=== PATIENT | female | born 1985 | race African-American/Black ===

== ENCOUNTER 2021-05-19 18:34 | Emergency (ER) | payer MEDICAID, SELFPAY ==
[2021-05-19 18:35] VITALS: BP 165/105; PULSE 92; RESP 16; TEMP 36.2; O2SAT 97; BMI 22.3
--- NOTE | 2021-05-19 18:57 | ED.RN ---
PATIENT NOW STATES SHE IS NOT SURE IF SHE WOULD TRY ANYTHING TO END HER LIFE BUT DOES NOT WANT TO BE HOME ALONE SHE DOES NOT FEEL SAFE BUT HAS THOUGHT ABOUT LAYING ON TRAIN TRACKS.
[2021-05-19 19:13] LABS: Absolute Lymphocyte Count 1.67 X10^3/uL (0.83-4.51); Absolute Neutrophil Count 4.6 X10^3/uL (2.0-7.7); Basophil# 0.05 X10^3/uL; Basophil% 0.7 % (0-1); Eosinophil# 0.22 X10^3/uL; Eosinophils% 3.1 % (0-5); Hematocrit 38.2 % (40-54); Hemoglobin 13.5 g/dL (13.0-16.5); Lymphocyte # 1.67 X10^3/ul (0.83-4.51); Lymphocyte % 23.6 % (19-41); Mean Corp Hgb Conc 35.3 g/dL (32-36); Mean Corpuscular Hgb 31.7 pg (27.0-32.0); Mean Corpuscular Volume 89.7 fL (80-94); Mean Platelet Vol. 9.2 fl (6.2-12.0); Monocyte# 0.51 X10^3/uL; Monocyte% 7.2 % (0-10); NRBC Flagged by Analyzer 0 % (0-5); Neutrophil # 4.61 X10^3/uL (2.7-7.7); Neutrophil % 65.1 % (47-70); Platelet Count 497 K/mm3 (150-450); RBC Distribution Width CV 11.2 % (11.6-14.6); RBC Distribution Width SD 36.7 fl (35.1-43.9); Red Blood Count 4.26 M/mm3 (4.6-6.2); White Blood Count 7.1 K/mm3 (4.4-11.0)
--- NOTE | 2021-05-19 19:22 | EDS_ITS ---
HPI History of Present Illness Chief Complaint: Suicidal Narrative Narrative: Patient presents with depression and suicidal ideations, initially she tells me that because she has no place to live however when I asked further it is because she does not feel safe in the empty house that is available to her. She tells me she is chronically depressed but worse recently, now she either wants to overdose on her medications or lay in front of a train track and get run over her. PFSH PFS Home Medications bupropion HCl 75 mg PO DAILY 05/19/21 [History Last Taken Unknown] fluoxetine 40 mg PO DAILY 05/19/21 [History Last Taken Unknown] melatonin 5 mg QHS 05/19/21 [History Last Taken Unknown] multivitamin 1 cap DAILY 05/19/21 [History Last Taken Unknown] olanzapine 5 mg PO DAILY 05/19/21 [History Last Taken Unknown] omega-3 fatty acids [[place] 3 Fish Oil] 1 cap PO DAILY 05/19/21 [History Last Taken Unknown] Allergy/AdvReac Type Severity Reaction Status Date / Time diphenhydramine Allergy Other Verified 05/19/21 18:34 [From Benadryl] Social History Smoking Status: Never smoker ROS ROS ED ROS Narrative Past medical history: Reviewed, asthma otherwise bipolar and depression and anxiety. Medications: Reviewed Social history: As in HPI Review of systems: All systems negative except as indicated. She basically has no somatic complaints General: No fever Eyes: No visual changes ENT: No upper airway congestion, normal voice Neck: No neck pain Cardiovascular: No chest pain Respiratory: No shortness of breath or cough Gastrointestinal: No abdominal pain, nausea vomiting or diarrhea Genitourinary: No dysuria Musculoskeletal: Denies myalgias no difficulty with ambulation Skin: No rash Neurological: No memory loss, confusion or any focal weakness Psych: As in HPI Hematologic: No easy bleeding or easy bruising EXAM Physical Exam Narrative Exam Narrative: Physical exam General: Well nourished, Well developed, No Acute Distress Head: Normocephalic, Atraumatic Eyes: Conjunctiva not pale ENT: Moist mucous membranes Neck: Supple, Nontender, No lymphadenopathy Cardiovascular: Regular rate, Regular rhythm Respiratory: No distress, CTA bilaterally Abdomen: Soft, Nontender, Nondistended Back: Nontender, Normal Inspection. Negative for: CVA tenderness Extremities: Nontender, No edema Skin: Normal color, No rash Neurological: Alert, Normal Strength, Normal Sensation Psychological: Patient has a depressed affect, she does not make much eye contact, otherwise she is not delusional, she has normal speech pattern and is no psychosis. Const Vital Signs: 05/19/21 18:35 Temperature 97.2 F L Temperature Source Temporal Pulse Rate 92 Respiratory Rate 16 Blood Pressure 165/105 H Blood Pressure Mean 125 Pulse Ox 97 Oxygen Delivery Method Room Air MDM MDM MDM Narrative Medical decision making narrative: Patient be medically cleared, she will need placement for suicidal ideations. Lab Data Labs: Laboratory Results - last 24 hr 05/19/21 05/19/21 18:50 19:00 WBC 7.1 RBC 4.26 L Hgb 13.5 Hct 38.2 L MCV 89.7 MCH 31.7 MCHC 35.3 RDW Std Deviation 36.7 RDW Coeff of Yvette 11.2 L Plt Count 497 H MPV 9.2 Immature Gran % (Auto) 0.300 Neut % (Auto) 65.1 Lymph % (Auto) 23.6 [place] % (Auto) 7.2 Eos % (Auto) 3.1 Baso % (Auto) 0.7 Absolute Neuts (auto) 4.6 Absolute Lymphs (auto) 1.67 Nucleated RBC % 0 Ur Drug Screen Comment Discharge Plan Triage Chief Complaint: Suicidal ED Provider: Sebastián Leggett Dx/Rx/DC Orders Clinical Impression: Depression, Suicide ideation Prescriptions: No Action olanzapine 5 mg Tablet 5 mg PO DAILY RF: 0 bupropion HCl 75 mg Tablet 75 mg PO DAILY RF: 0 multivitamin Capsule 1 cap DAILY RF: 0 fluoxetine 20 mg Capsule 40 mg PO DAILY RF: 0 [place] 3 Fish Oil Capsule 1 cap PO DAILY RF: 0 melatonin 5 mg Capsule 5 mg QHS RF: 0 Referrals: CORKY MAYO [Other] Disposition Disposition: Transfer to Another Type [facility]
[2021-05-19 19:28] LABS: Amphetamine Urine VISTA NEGATIVE (<1000 ng/mL); Barbiturate Urine VISTA NEGATIVE (< 200 ng/mL); Benzodiazepine Urine VISTA NEGATIVE (< 200 ng/mL); Cocaine Urine VISTA NEGATIVE (< 300 ng/mL); Ecstacy Urine VISTA POSITIVE (< 500 ng/mL); Methadone Urine VISTA NEGATIVE (< 300 ng/mL); PCP Urine VISTA NEGATIVE (< 25 ng/mL); THC Urine VISTA NEGATIVE (< 50 ng/mL); Vista UDS pH Range 6
[2021-05-19 19:28] LABS: Alcohol, Blood (Medical)-Serum < 3.0 mg/dL
[2021-05-19 19:29] LABS: Anion Gap 7 (5-15); BUN 5 mg/dL (7-18); BUN/Creat Ratio 5.7 RATIO (10-20); Calcium,Total 9.7 mg/dL (8.5-10.1); Chloride 106 mmol/L (98-107); Creatinine, Serum 0.88 mg/dL (0.55-1.02); EST Glomerular Filtration Rate 78 mL/min (>60); Est Glom Filt Rate - Afr Amer 95 mL/min (>60); Estimated Creatinine Clearance 78.52 ml/min; Glucose 104 mg/dL (74-106); Potassium 3.2 mmol/L (3.5-5.1); Sodium Level 139 mmol/L (136-145)
[2021-05-19 19:38] LABS: Internal QC Validated? YES +Cl - CLEAR BKGD; Pregnancy, Serum, hCG Quali. NEGATIVE Negative
[2021-05-19 19:51] VITALS: RESP 17
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
--- NOTE | 2021-05-19 20:09 | CM.ED ---
Social Work Telephone call to shanique Villafana. Unable to confirm if there are open beds. Clinical information faxed. [facility] usual process. Clinical information faxed. Will continue to follow. King CHACON, FIDEL
[2021-05-19] MEDS: Acetaminophen 500 MG Tablet 1000 MG PO (21:35)
[2021-05-19 21:36] VITALS: RESP 17
--- NOTE | 2021-05-19 21:37 | CM.ED ---
Social Work Telephone call to [facility], intake. Intake reports to have open beds. Clinical information faxed. Will continue to follow. King CHACON, FIDEL
--- NOTE | 2021-05-19 22:17 | CM.ED ---
Social Work Telephone call from Gwendolyn Villafana. Patient accepted by Dr. Martinez to the adult unit. Nurse to call report to [phone]. Telephone call to [facility], [facility]. Referral canceled. Telephone call to [facility], [facility]. Referral canceled. Medical team and patient updated. PLAN: Meghan Horner. King CHACON, FIDEL
[2021-05-19 22:25] VITALS: RESP 17
[2021-05-19 23:00] VITALS: BP 120/70; PULSE 72; RESP 17; TEMP 36.2; O2SAT 99
[2021-05-20 00:13] VITALS: RESP 16
[2021-05-20 02:00] VITALS: PULSE 72; RESP 14
== END 2021-05-20 02:56 | disposition other institution (70) ==
PROVIDERS: Emergency Provider Emergency Medicine; Visit Provider Emergency Medicine
DX: F32.A Depression, unspecified (principal); R45.851 Suicidal ideations; Z79.899 Other long term (current) drug therapy
CPT/HCPCS: 36415; 80048; 80307; 82077; 84703; 85025; 87426; 99285

== ENCOUNTER 2021-06-03 17:22 | Emergency (ER) | payer MEDICAID, SELFPAY ==
[2021-06-03 17:25] VITALS: BP 146/118; PULSE 72; RESP 17; TEMP 35.6; O2SAT 100; BMI 21.4
--- NOTE | 2021-06-03 18:22 | EX.ED.VIS.PS ---
HPI HPI - Psych History of Present Illness Chief Complaint: Suicidal Narrative Narrative: 35-year-old female with history of depression, suicidal ideation presenting after saying she wanted to . Patient is homeless and lives in a prison and she does not want to live there. She states she does not feel suicidal she is stated she does not want to live anymore. She has no active plan to hurt herself. No homicidal ideation. She is not hallucinating. Patient does states she was recently admitted about 2 weeks ago from [facility]. PFSH PFSH Allergy/AdvReac Type Severity Reaction Status Date / Time diphenhydramine Allergy Angioedema Verified 06/03/21 17:23 [From Benadryl] Social History Smoking Status: Never smoker ROS ROS ED Constitutional Constitutional ED: Denies fever(s) or sweats Eyes Eyes: Denies blurry vision or diplopia ENT ENT ED: Denies rhinorrhea or sore throat Cardiovascular Cardiovascular: Denies chest pain or palpitations Respiratory/Chest Respiratory/Chest: Denies cough or dyspnea Gastrointestinal Gastrointestinal: Denies abdominal pain, nausea or vomiting Genitourinary Genitourinary ED: Denies dysuria or hematuria Musculoskeletal Musculoskeletal: Denies arthralgias or myalgias Integumentary Denies abscess or rash Neurologic Neurologic: Denies headache(s) or weakness Psychiatric Psychiatric: Reports depression and suicidal thoughts; Denies suicidal ideation Endocrine Endocrinology: Denies polydipsia or polyuria EXAM Physical Exam Const Vital Signs: 06/03/21 17:25 06/03/21 20:02 Temperature 96.0 F L Temperature Source Temporal Pulse Rate 72 76 Respiratory Rate 17 17 Blood Pressure 146/118 H Blood Pressure Mean 127 Pulse Ox 100 Oxygen Delivery Method Room Air Positive well nourished General Appearance ED: NAD; Negative for pallor HEENT normocephalic and atraumatic Eyes PERRL and EOMs intact bilaterally Cardio Rate: regular rate Rhythm: regular rhythm Extremity normal to inspection Neuro oriented x3 and CN's II-XII intact bilaterally Sensorium / Orientation: alert Psych denies homicidal ideation and denies suicidal ideation Appearance: grossly normal Mood & Affect: depressed Skin General Skin Exam: Negative for jaundice or pallor Rashes: no rashes MDM MDM MDM Narrative Medical decision making narrative: After speaking with the pediatric social worker the patient was saying that she feels like she wants to . She is currently off her medications a. She does not have any follow-up. She is currently homeless. Social work felt it was best if she was to come inpatient due to her suicidal thoughts although she does not have an active plan just this month she was seen for wanting to and threatened to put her self on train tracks versus overdose with her medications. Blood work is obtained and her CBC and BMP are normal with exception of a potassium of 3.3 which was repleted orally. Serum negative. EtOH negative. Urine drug screen negative. Rapid Covid negative. Patient medically cleared. Patient was accepted by [facility] and will be transferred when transport becomes available. Impression: 1. Depression 2. Suicidal thoughts 3. Hypokalemia Lab Data Attestation: I reviewed the patient's lab results. Labs: Laboratory Results - last 24 hr 06/03/21 06/03/21 06/03/21 18:45 18:45 18:45 WBC 5.5 RBC 4.33 Hgb 13.4 Hct 39.7 MCV 91.7 MCH 30.9 MCHC 33.8 RDW Std Deviation 38.5 RDW Coeff of Yvette 11.4 L Plt Count 416 MPV 9.0 Immature Gran % (Auto) 0.400 Neut % (Auto) 69.4 Lymph % (Auto) 19.3 [place] % (Auto) 7.1 Eos % (Auto) 3.3 Baso % (Auto) 0.5 Absolute Neuts (auto) 3.8 Absolute Lymphs (auto) 1.06 Nucleated RBC % 0 Sodium 139 Potassium 3.3 L Chloride 107 Carbon Dioxide 26.0 Anion Gap 6 BUN 7 Creatinine 0.87 Estim Creat Clear Calc 79.42 Est GFR (MDRD) Af Amer 96 Est GFR (MDRD) Non-Af 79 BUN/Creatinine Ratio 8.0 L Glucose 91 Calcium 9.6 Serum , Qual Urine Opiates Screen Urine Methadone Screen Ur Barbiturates Screen Ur Phencyclidine Scrn Ur Amphetamines Screen MDMA (Ecstasy) Screen U Benzodiazepines Scrn Urine Cocaine Screen U Cannabinoids Screen Ur Drug Screen Comment Ethyl Alcohol < 3.0 06/03/21 06/03/21 18:45 19:00 WBC RBC Hgb Hct MCV MCH MCHC RDW Std Deviation RDW Coeff of Yvette Plt Count MPV Immature Gran % (Auto) Neut % (Auto) Lymph % (Auto) [place] % (Auto) Eos % (Auto) Baso % (Auto) Absolute Neuts (auto) Absolute Lymphs (auto) Nucleated RBC % Sodium Potassium Chloride Carbon Dioxide Anion Gap BUN Creatinine Estim Creat Clear Calc Est GFR (MDRD) Af Amer Est GFR (MDRD) Non-Af BUN/Creatinine Ratio Glucose Calcium Serum , Qual NEGATIVE Urine Opiates Screen NEGATIVE Urine Methadone Screen NEGATIVE Ur Barbiturates Screen NEGATIVE Ur Phencyclidine Scrn NEGATIVE Ur Amphetamines Screen NEGATIVE MDMA (Ecstasy) Screen NEGATIVE U Benzodiazepines Scrn NEGATIVE Urine Cocaine Screen NEGATIVE U Cannabinoids Screen NEGATIVE Ur Drug Screen Comment Ethyl Alcohol Discharge Plan Triage Chief Complaint: Suicidal Other Complaint: Mental Health ED Provider: Chandra Nicole
[2021-06-03 19:03] LABS: Absolute Lymphocyte Count 1.06 X10^3/uL (0.83-4.51); Absolute Neutrophil Count 3.8 X10^3/uL (2.0-7.7); Basophil# 0.03 X10^3/uL; Basophil% 0.5 % (0-1); Eosinophil# 0.18 X10^3/uL; Eosinophils% 3.3 % (0-5); Hematocrit 39.7 % (37-47); Hemoglobin 13.4 g/dL (12.0-15.0); Lymphocyte # 1.06 X10^3/ul (0.83-4.51); Lymphocyte % 19.3 % (19-41); Mean Corp Hgb Conc 33.8 g/dL (32-36); Mean Corpuscular Hgb 30.9 pg (27.0-32.0); Mean Corpuscular Volume 91.7 fL (81-99); Monocyte# 0.39 X10^3/uL; Monocyte% 7.1 % (0-10); NRBC Flagged by Analyzer 0 % (0-5); Neutrophil % 69.4 % (47-70); Platelet Count 416 K/mm3 (150-450); RBC Distribution Width CV 11.4 % (11.6-14.6); RBC Distribution Width SD 38.5 fl (35.1-43.9); Red Blood Count 4.33 M/mm3 (4.2-5.4); White Blood Count 5.5 K/mm3 (4.4-11.0)
[2021-06-03 19:18] LABS: Anion Gap 6 (5-15); BUN 7 mg/dL (7-18); Calcium,Total 9.6 mg/dL (8.5-10.1); Chloride 107 mmol/L (98-107); Creatinine, Serum 0.87 mg/dL (0.55-1.02); EST Glomerular Filtration Rate 79 mL/min (>60); Est Glom Filt Rate - Afr Amer 96 mL/min (>60); Estimated Creatinine Clearance 79.42 ml/min; Glucose 91 mg/dL (74-106); Potassium 3.3 mmol/L (3.5-5.1); Sodium Level 139 mmol/L (136-145)
[2021-06-03 19:26] LABS: Internal QC Validated? YES +Cl - CLEAR BKGD; Pregnancy, Serum, hCG Quali. NEGATIVE Negative
[2021-06-03 19:27] LABS: Alcohol, Blood (Medical)-Serum < 3.0 mg/dL
[2021-06-03 19:31] LABS: Amphetamine Urine VISTA NEGATIVE (<1000 ng/mL); Barbiturate Urine VISTA NEGATIVE (< 200 ng/mL); Benzodiazepine Urine VISTA NEGATIVE (< 200 ng/mL); Cocaine Urine VISTA NEGATIVE (< 300 ng/mL); Ecstacy Urine VISTA NEGATIVE (< 500 ng/mL); Methadone Urine VISTA NEGATIVE (< 300 ng/mL); PCP Urine VISTA NEGATIVE (< 25 ng/mL); THC Urine VISTA NEGATIVE (< 50 ng/mL); Vista UDS pH Range 7
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
[2021-06-03] MEDS: Potassium Chloride Oral Tablet 20 MEQ 40 MEQ PO (20:00)
[2021-06-03 20:02] VITALS: PULSE 76; RESP 17
--- NOTE | 2021-06-03 20:41 | NURSING ---
ACCEPTED AT [facility]
--- NOTE | 2021-06-03 20:59 | CM.ED ---
NICHOLAS Note: NICHOLAS called [facility]. They advised to fax referral. NICHOLAS faxed referral. NICHOLAS called [facility]. They have not made a determination yet regarding patient. NICHOLAS called [facility] and advised that SW is faxing referral. NICHOLAS faxed referral to [facility] NICHOLAS received call from Sarah at [facility]. Patient accepted to the Adult Behaviora Unit. RN to RN is [phone]. Accepting MD is Evgeny. Sarah requested pink slip with MEP name be faxed to [facility]. NICHOLAS faxed updated pink slip to [facility]. NICHOLAS updated RN and embossing clerk and MD that patient accepted at [facility]. admin secretary Kathy will schedule transport. NICHOLAS spoke to patient and advised she is going to [facility]. NICHOLAS also provided her with resource list from [employer] and phone number for homeless navigator. Plan: [facility] Kristel NEVAREZ
[2021-06-03 21:04] VITALS: BP 146/98; PULSE 77; RESP 16; TEMP 36.5; O2SAT 99
--- NOTE | 2021-06-03 21:11 | NURSING ---
CALLED [facility], ETA IS 20 TO 30 MIN
== END 2021-06-03 21:59 ==
PROVIDERS: Emergency Provider Student in an Organized Health Care Education/Training Program; Visit Provider Student in an Organized Health Care Education/Training Program
DX: F32.A Depression, unspecified (principal); R45.851 Suicidal ideations; E87.6 Hypokalemia
CPT/HCPCS: 80048; 80307; 82077; 84703; 85025; 87811; 99282

== ENCOUNTER 2021-06-20 08:39 | Emergency (ER) | payer MEDICAID, SELFPAY ==
[2021-06-20 08:40] VITALS: BP 126/88; PULSE 77; RESP 16; TEMP 36.4; O2SAT 100; BMI 21.4
--- NOTE | 2021-06-20 08:49 | EKG12_ITS ---
Test Reason : MENTAL HEALTH Blood Pressure : / mmHG Vent. Rate : 067 BPM Atrial Rate : 067 BPM P-R Int : 158 ms QRS Dur : 074 ms QT Int : 418 ms P-R-T Axes : 082 -09 052 degrees QTc Int : 441 ms Normal sinus rhythm with sinus arrhythmia Normal ECG Confirmed by ARVIN LIN, GENNY ([id number]), publications editor ARUNA LINDQUIST ([id number]) on 06/22/2021 11:32:03 AM Referred By: YORDY Confirmed By:GENNY SHERIDAN MD
--- NOTE | 2021-06-20 08:54 | NURSING ---
NO OLD EKGS
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
[2021-06-20 09:16] LABS: Absolute Lymphocyte Count 1.63 X10^3/uL (0.83-4.51); Absolute Neutrophil Count 3.9 X10^3/uL (2.0-7.7); Basophil# 0.05 X10^3/uL; Basophil% 0.8 % (0-1); Eosinophil# 0.21 X10^3/uL; Eosinophils% 3.4 % (0-5); Hematocrit 35.9 % (37-47); Hemoglobin 12.7 g/dL (12.0-15.0); Lymphocyte # 1.63 X10^3/ul (0.83-4.51); Lymphocyte % 26.2 % (19-41); Mean Corp Hgb Conc 35.4 g/dL (32-36); Mean Corpuscular Hgb 30.7 pg (27.0-32.0); Mean Corpuscular Volume 86.7 fL (81-99); Mean Platelet Vol. 9.3 fl (6.2-12.0); Monocyte# 0.38 X10^3/uL; Monocyte% 6.1 % (0-10); NRBC Flagged by Analyzer 0 % (0-5); Neutrophil # 3.91 X10^3/uL (2.7-7.7); Neutrophil % 62.9 % (47-70); Platelet Count 385 K/mm3 (150-450); RBC Distribution Width CV 11.2 % (11.6-14.6); RBC Distribution Width SD 35.4 fl (35.1-43.9); Red Blood Count 4.14 M/mm3 (4.2-5.4); White Blood Count 6.2 K/mm3 (4.4-11.0)
[2021-06-20 09:40] LABS: ALB/GLOB Ratio 1.1 RATIO (0.9-2.4); AST(SGOT) 14 U/L (15-37); Alanine Aminotransfer ALT/SGPT 13 U/L (13-56); Albumin, Serum 4.1 g/dL (3.2-5.0); Alkaline Phosphatase 80 U/L (45-117); Anion Gap 8 (5-15); BUN 10 mg/dL (7-18); BUN/Creat Ratio 11.6 RATIO (10-20); Chloride 105 mmol/L (98-107); Creatinine, Serum 0.86 mg/dL (0.55-1.02); EST Glomerular Filtration Rate 80 mL/min (>60); Est Glom Filt Rate - Afr Amer 97 mL/min (>60); Estimated Creatinine Clearance 80.35 ml/min; Globulin 3.9 g/dL (2.2-4.2); Glucose 78 mg/dL (74-106); Potassium 3.6 mmol/L (3.5-5.1); Sodium Level 136 mmol/L (136-145)
[2021-06-20 09:41] LABS: Internal QC Validated? YES +Cl - CLEAR BKGD; Pregnancy, Serum, hCG Quali. NEGATIVE Negative
[2021-06-20 09:43] LABS: Alcohol, Blood (Medical)-Serum < 3.0 mg/dL
[2021-06-20 10:13] LABS: Amphetamine Urine VISTA NEGATIVE (<1000 ng/mL); Barbiturate Urine VISTA NEGATIVE (< 200 ng/mL); Benzodiazepine Urine VISTA NEGATIVE (< 200 ng/mL); Cocaine Urine VISTA NEGATIVE (< 300 ng/mL); Ecstacy Urine VISTA NEGATIVE (< 500 ng/mL); Methadone Urine VISTA NEGATIVE (< 300 ng/mL); PCP Urine VISTA NEGATIVE (< 25 ng/mL); THC Urine VISTA NEGATIVE (< 50 ng/mL); Vista UDS pH Range 5
[2021-06-20 10:21] VITALS: RESP 16
--- NOTE | 2021-06-20 10:26 | NURSING ---
FAXED CHART TO CRISIS
[2021-06-20 11:07] VITALS: RESP 16
--- NOTE | 2021-06-20 11:24 | NURSING ---
1118 RAVINDER, CRISIS, TALKING TO PATIENT
[2021-06-20 12:14] VITALS: PULSE 65; RESP 16; O2SAT 98
--- NOTE | 2021-06-20 12:15 | ED.RN ---
facility staff from the senior care will make sure that pt gets to her counseling appt.
== END 2021-06-20 12:15 | disposition home or self-care (01) ==
PROVIDERS: Emergency Provider Emergency Medicine; Visit Provider Emergency Medicine
DX: F31.9 Bipolar disorder, unspecified (principal); R45.851 Suicidal ideations; Z79.899 Other long term (current) drug therapy
CPT/HCPCS: 80053; 80307; 82077; 84703; 85025; 93005; 99284

== ENCOUNTER 2023-11-26 22:36 | Emergency (ER) | payer SELFPAY ==
[2023-11-26 22:38] VITALS: BP 158/100; PULSE 89; RESP 25; TEMP 35.5; O2SAT 100
[2023-11-26 22:40] VITALS: O2SAT 100
--- NOTE | 2023-11-26 23:12 | RAD_ITS ---
INDICATION: SOB EXAMINATION/TECHNIQUE: X-RAY - XR Chest 2 Views COMPARISON: No relevant prior comparison study available FINDINGS: LINES/DEVICES: None. LUNGS: No consolidation. No pneumothorax. MEDIASTINUM: Unremarkable. CARDIAC SILHOUETTE: Not enlarged. BONES AND SOFT TISSUES: No acute abnormalities. RAD/Chest PA and Lateral IMPRESSION: No evidence of active intrathoracic disease. Electronically Signed: Lara Webb MD at 0:47 EDT ,
--- NOTE | 2023-11-26 23:13 | EDS_ITS ---
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 She states she is feeling lightheaded. She presents by EMS. She denies any chest discomfort or illness prior to this. [facility] Medical History PTSD (post-traumatic stress disorder) Bipolar 1 disorder Anxiety Depression Home Medications ?Medication ?Instructions ?Recorded ?Last Taken ?Type bupropion HCl 75 mg tablet 75 mg PO DAILY 05/19/21 Unknown History fluoxetine 20 mg capsule 40 mg PO DAILY 05/19/21 Unknown History melatonin 5 mg capsule 5 mg QHS 05/19/21 Unknown History multivitamin 1 cap DAILY 05/19/21 Unknown History olanzapine 5 mg tablet 5 mg PO DAILY 05/19/21 Unknown History omega-3 fatty acids 1 cap PO DAILY 05/19/21 Unknown History bupropion HCl 450 mg 24 hr tablet, 450 mg PO DAILY 06/20/21 Unknown History extended release famotidine 20 mg tablet 20 mg PO DAILY 06/20/21 Unknown History fluoxetine 40 mg capsule 80 mg PO DAILY 06/20/21 Unknown History melatonin 3 mg tablet 6 mg PO QHS 06/20/21 Unknown History mirtazapine 30 mg tablet 30 mg PO QHS 06/20/21 Unknown History olanzapine 20 mg tablet 20 mg PO QHS 06/20/21 Unknown History albuterol sulfate 90 mcg/actuation 1 - 2 puff inhalation Q4H PRN PRN 11/27/23 Unknown Rx aerosol inhaler (Ventolin HFA) Wheezing ##1 Allergy/AdvReac Type Severity Reaction Status Date / Time diphenhydramine (From Allergy Angioedema Verified 11/26/23 22:38 Benadryl) Surgical History H/O: hysterectomy Social History Smoking Status: Never smoker ROS ROS ED Constitutional Constitutional ED: Denies chills or fever(s) Eyes Eyes: Denies change in vision or diplopia ENT ENT ED: Denies rhinorrhea or sore throat Cardiovascular Cardiovascular: Reports lightheadedness; Denies chest pain or palpitations Respiratory/Chest Respiratory/Chest: Reports dyspnea; Denies cough Gastrointestinal Gastrointestinal: Denies abdominal pain, diarrhea, nausea or vomiting Genitourinary Genitourinary ED: Denies dysuria or hematuria Musculoskeletal Musculoskeletal: Denies back pain or neck pain Integumentary Denies abscess or rash Neurologic Neurologic: Denies headache(s), paresthesias or weakness Psychiatric Psychiatric: Reports anxiety; Denies suicidal thoughts EXAM Physical Exam Const Vital Signs: 11/26/23 22:38 11/26/23 23:18 Temperature 96 F L Temperature Source Temporal Pulse Rate 89 69 Respiratory Rate 25 H 20 H Blood Pressure 158/100 H Blood Pressure Mean 119 Pulse Ox 100 Oxygen Delivery Method Room Air Positive well nourished and well developed General Appearance ED: well developed and NAD HEENT Reports moist mucous membranes normocephalic and atraumatic Eyes PERRL and EOMs intact bilaterally Neck full ROM and supple Resp normal respiratory effort and clear to auscultation bilaterally Resp Narrative: Tachypneic. Equal breath sounds bilaterally. Trachea midline. Clear. Cardio regular rate, regular rhythm and no murmurs GI non-tender and non-distended Auscultation: normoactive bowel sounds Palpation: soft Back/Spine no CVA tenderness General Back: other FROM Extremity normal to inspection General Extremety ED: Negative for edema, pulses abnormal or tenderness General Extremity: Negative for edema or pulses abnormal Neuro oriented x3, CN's II-XII intact bilaterally and no sensory deficits noted Sensorium / Orientation: awake and alert Motor Exam: strength 5/5 throughout Psych Mood & Affect: anxious Thought Process: normal thought process Skin no rashes or lesions noted and no wounds MDM MDM MDM Narrative Medical decision making narrative: Patient is tachypneic with fairly clear lungs no tachycardia, 100% pulse oximetry on room air, she appears very anxious. I advised her to try to calm her breathing down and we gave her breathing treatment, this really helped. I obtained a two-view chest x-ray on my interpretation it is normal. I reexamination she is doing much better, breathing comfortably, and not tachypneic and feeling much better. Prescribed an albuterol rescue inhaler I do not think she needs steroids for this. She is comfortable with that plan. Discharge Plan Triage Chief Complaint: Shortness of Breath ED Provider: Rodo Garcia Dx/Rx/DC Orders Clinical Impression: Asthma exacerbation Instructions: ED Asthma, Acute (Adult) Prescriptions: New albuterol sulfate [Ventolin HFA] 90 mcg/actuation HFA aerosol inhaler 1 - 2 puff inhalation Q4H PRN PRN (Reason: Wheezing) Qty: 1 0RF No Action olanzapine 5 mg Tablet 5 mg PO DAILY bupropion HCl 75 mg Tablet 75 mg PO DAILY multivitamin Capsule 1 cap DAILY fluoxetine 20 mg Capsule 40 mg PO DAILY [place] 3 Fish Oil Capsule 1 cap PO DAILY melatonin 5 mg Capsule 5 mg QHS fluoxetine 40 mg Capsule 80 mg PO DAILY melatonin 3 mg Tablet 6 mg PO QHS famotidine 20 mg Tablet 20 mg PO DAILY mirtazapine 30 mg Tablet 30 mg PO QHS olanzapine 20 mg Tablet 20 mg PO QHS bupropion HCl 450 mg Tablet Extended Release 24 Hr 450 mg PO DAILY Primary Care Provider: Manolo Brandon Referrals: Manolo Brandon [Other] Print Language: Nauruan
[2023-11-26] MEDS: Albuterol 2.5 MG/3 ML VIAL.NEB. INHALATION (23:17)
[2023-11-26 23:18] VITALS: PULSE 69; RESP 20
[2023-11-27 00:36] VITALS: BP 114/82; PULSE 85; RESP 16; TEMP 36.8; O2SAT 99
== END 2023-11-27 00:37 | disposition home or self-care (01) ==
PROVIDERS: Emergency Provider Emergency Medicine; Visit Provider Emergency Medicine
DX: J45.901 Unspecified asthma with (acute) exacerbation (principal)
CPT/HCPCS: 71046; 94640; 99282

== ENCOUNTER 2024-01-07 17:51 | Emergency (ER) | payer MEDICAID, SELFPAY ==
[2024-01-07 17:53] VITALS: BP 151/94; PULSE 89; RESP 16; TEMP 36.6; O2SAT 100; BMI 19.5
--- NOTE | 2024-01-07 19:00 | RAD_ITS ---
EXAM: XR RIGHT HIP WITH AP PELVIS , 3 VIEWS CLINICAL INDICATION: INJURY TECHNIQUE: Two views of the right hip with AP pelvis . COMPARISON: No relevant prior studies available. FINDINGS: BONES/JOINTS: Unremarkable. No displaced fracture. No destructive or sclerotic lesions. Note that overlapping bowel shadows may however obscure fine detail. Sacroiliac joint is unremarkable. No widening of the pubic symphysis. The articular structures are unremarkable. SOFT TISSUES: Unremarkable. No soft tissue swelling or gas. RAD/HIP, UNI W/ Pelvis 2-3 Views IMPRESSION: No evidence of displaced pelvic or hip fracture. No joint effusion. Electronically Signed: Karen Johansen MD at 20:37 EDT ,
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
[2024-01-07 23:15] VITALS: BP 105/82; PULSE 66; RESP 16; TEMP 36.9; O2SAT 96
[2024-01-07] MEDS: predniSONE 20 MG Tablet 40 MG PO (23:17)
== END 2024-01-07 23:21 | disposition home or self-care (01) ==
PROVIDERS: Emergency Provider Emergency Medicine; Visit Provider Emergency Medicine
DX: M25.551 Pain in right hip (principal); F31.9 Bipolar disorder, unspecified; F41.9 Anxiety disorder, unspecified
CPT/HCPCS: 73502; 99283

== ENCOUNTER 2024-04-04 16:23 | Emergency (ER) | payer MEDICAID, SELFPAY ==
[2024-04-04 16:25] VITALS: BP 135/101; PULSE 95; RESP 18; TEMP 36.1; O2SAT 100
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
[2024-04-04 17:19] VITALS: BMI 19.5
[2024-04-04 17:33] LABS: Absolute Neutrophil Count 3.7 X10^3/uL (2.0-7.7); Basophil# 0.05 X10^3/uL; Basophil% 0.8 % (0-1); Eosinophil# 0.23 X10^3/uL; Eosinophils% 3.8 % (0-5); Hematocrit 38.7 % (37-47); Hemoglobin 13.3 g/dL (12.0-15.0); Lymphocyte % 26.7 % (19-41); Mean Corp Hgb Conc 34.4 g/dL (32-36); Mean Corpuscular Hgb 31.5 pg (27.0-32.0); Mean Corpuscular Volume 91.7 fL (81-99); Mean Platelet Vol. 9.2 fl (6.2-12.0); Monocyte# 0.35 X10^3/uL; Monocyte% 5.8 % (0-10); NRBC Flagged by Analyzer 0 % (0-5); Neutrophil # 3.74 X10^3/uL (2.7-7.7); Neutrophil % 62.4 % (47-70); Platelet Count 359 K/mm3 (150-450); RBC Distribution Width CV 11.5 % (11.6-14.6); RBC Distribution Width SD 38.9 fl (35.1-43.9); Red Blood Count 4.22 M/mm3 (4.2-5.4)
[2024-04-04 17:51] LABS: Internal QC Validated? YES +Cl - CLEAR BKGD; Pregnancy, Serum, hCG Quali. NEGATIVE Negative
[2024-04-04 17:57] LABS: Amphetamine Urine NEGATIVE (<1000 ng/mL); Barbiturate Urine VISTA NEGATIVE (< 200 ng/mL); Benzodiazepine Urine VISTA NEGATIVE (< 200 ng/mL); Cocaine Urine VISTA NEGATIVE (< 300 ng/mL); Ecstacy Urine VISTA NEGATIVE (< 500 ng/mL); Methadone Urine VISTA NEGATIVE (< 300 ng/mL); PCP Urine VISTA NEGATIVE (< 25 ng/mL); THC Urine VISTA NEGATIVE (< 50 ng/mL); Vista UDS pH Range 7
[2024-04-04 18:12] VITALS: BP 142/97; PULSE 80; O2SAT 100
[2024-04-04 18:14] LABS: Anion Gap 4 (5-15); BUN 9 mg/dL (7-18); BUN/Creat Ratio 9.1 RATIO (10-20); Calcium,Total 9.4 mg/dL (8.5-10.1); Chloride 106 mmol/L (98-107); Creatinine, Serum 0.99 mg/dL (0.55-1.02); EST Glomerular Filtration Rate 68 mL/min (>60); Est Glom Filt Rate - Afr Amer 82 mL/min (>60); Estimated Creatinine Clearance 64.24 ml/min; Glucose 99 mg/dL (74-106); Potassium 3.6 mmol/L (3.5-5.1); Sodium Level 136 mmol/L (136-145)
--- NOTE | 2024-04-04 18:38 | ED.RN ---
PT REFUSES TO TAKE MOTRIN. STATES I AM UNABLE TO TAKE NSAIDS. WHEN ASKED WHY PT DID NOT TELL STAFF THIS EARLIER OR HAVE IT LISTED. PT STATES LISTEN, I AM IN SEVERE CHRONIC PAIN
--- NOTE | 2024-04-04 19:05 | ED.RN ---
[facility]IS CALLED AND CHART FAXED. SW WILL BE IN.
[2024-04-04] MEDS: Ketorolac 15 MG/ML Vial IM (19:46)
[2024-04-05] MEDS: Ketorolac 15 MG/ML Vial IM ×3 (02:15→22:19)
[2024-04-05 02:20] VITALS: BP 130/65; PULSE 69; RESP 17; O2SAT 98
--- NOTE | 2024-04-05 04:39 | ED.RN ---
DAYLIN MARTELL CALLED, PT REFERRED TO [facility] AND [facility].
[2024-04-05] MEDS: LORazepam 0.5 MG Tablet PO (08:08)
--- NOTE | 2024-04-05 09:29 | ED.RN ---
CRISIS CALLED AT 0930 [facility] AND [facility] DECLINED DUE TO LACK OF BEDS AND NO DCS TODAY. SHE IS UNDER REVIEW AT [facility] AND [facility].
[2024-04-05 10:00] VITALS: BP 131/107; PULSE 71; RESP 18; O2SAT 98
--- NOTE | 2024-04-05 10:56 | ED.RN ---
DECLINED AT [facility] UNDER REVIEW AT [facility] ROBLERO AND WAITING TO HEAR FROM GENERAL STILL
--- NOTE | 2024-04-05 11:16 | EKG12_ITS ---
Test Reason : MEDICAL CLEARANCE Blood Pressure : */* mmHG Vent. Rate : 80 BPM Atrial Rate : 80 BPM P-R Int : 168 ms QRS Dur : 74 ms QT Int : 376 ms P-R-T Axes : 81 -27 44 degrees QTcB Int : 433 ms Normal sinus rhythm Normal ECG Confirmed by KIMBERLY LIN, JOSE ([id number]), photo editor KYLER VALLECILLO ([id number]) on 04/06/2024 10:58:15 A M Referred By: Confirmed By: JOSE HARRIS MD
--- NOTE | 2024-04-05 11:38 | ED.RN ---
DECLINED AT [facility] ALSO. CRISIS WILL START LOOKING INTO [facility].
--- NOTE | 2024-04-05 14:36 | ED.RN ---
OF 1429 CRISIS CALLED BACK, [facility] WILL NOT HAVE ANY FEMALE BEDS OR DCS TODAY OR TOMORROW. MAYI FROM CRISIS IS STILL WORKING ON PLACEMENT AT [facility] AND [facility]. SHE IS ALSO REACHING OUT TO THE PLACES THAT ORIGINALLY DECLINED DUE TO LACK OF BEDS TO SEE IF THEY WILL HAVE A BED SOONER THAN SATURDAY.
--- NOTE | 2024-04-05 15:13 | ED.RN ---
SILVIA FROM CRISES TO COME SEE PT FACE TO FACE
--- NOTE | 2024-04-05 15:15 | ED.RN ---
PT UNDER REVIEW AT [facility] RUBI GONZALES
[2024-04-05] MEDS: Acetaminophen 325 MG Tablet 650 MG PO (15:33)
--- NOTE | 2024-04-05 17:16 | ED.RN ---
Brock from crisis re-evaluated pt, still will be placing pt. continue to refer and find a facility.
[2024-04-05 17:36] VITALS: PULSE 81; RESP 17; TEMP 36.7; O2SAT 97
[2024-04-06 02:00] VITALS: BP 128/80; PULSE 69; RESP 17; O2SAT 98
[2024-04-06] MEDS: Ketorolac 10 MG Tablet PO (06:15)
--- NOTE | 2024-04-06 08:24 | CM.ED ---
Social work This SW called Massiel at [facility] ([phone]) to check on patient's status on inpatient placement. Massiel stated there is no update as [facility] is still waiting on [place] to call back. Massiel stated intent to call back to other places that have declined patient due to having no beds over the weekend. [facility] to return call to this SW when answer is known. SW to follow as needed. Toña Fraser, SPOUTING INSTALLER, MOSAICIST
--- NOTE | 2024-04-06 08:56 | ED.RN ---
ACCEPTED AT [facility] AT 0850 RIDE COMING AT 1033
[2024-04-06 10:23] VITALS: BP 132/76; PULSE 78; RESP 18; TEMP 36.6; O2SAT 98
[2024-04-06 10:51] VITALS: BP 132/78; PULSE 64; RESP 18; TEMP 37.1; O2SAT 99
--- NOTE | 2024-04-06 11:43 | CM.ED ---
Social work This SW received a voicemail from Elena at [facility] and returned phone call at 1135 (ph: [phone]). Elena stated patient may not be able to go to [place] today due to it being a holiday and Elena apologized. This SW advised Elena that [place] had communicated directly with [facility] ED java front end web developer at 0850 stating that patient was accepted with transport scheduled for 1030. Patient left the [facility] ED around 1100. This SW apologized to [facility], stating the assumption that [place] had communicated with [facility] as well. Elena accepted apology and stated being glad that patient was able to go today after all. No other needs identified for patient at this time. Toña Fraser, SAND CARRIER, PEARL STRINGER
== END 2024-04-06 10:53 ==
PROVIDERS: Nurse Practitioner; Emergency Provider Surgery; Visit Provider Surgery
DX: R45.851 Suicidal ideations (principal); F32.A Depression, unspecified
CPT/HCPCS: 80048; 80307; 82077; 84703; 85025; 93005; 96372; 99285